=== PATIENT | female | born 1975 | race Hispanic/Latino ===

== ENCOUNTER 2018-08-24 10:55 | Outpatient (CLI) | payer BC ==
[2018-08-24 11:57] LABS: Hemoglobin 13.4 g/dL (12.0-16.0); Mean Corpuscular Hemoglobin 30.6 pg (27.0-31.0); Mean Corpuscular Volume 90.1 fL (78.0-98.0); Mean Platelet Volume 7.1 fL (7.4-10.4); Platelet Count 304 thou/uL (130-400); Red Blood Cell (RBC) Count 4.38 mill/uL (4.20-5.40); White Blood Cell (WBC) Count 7.2 thou/uL (4.8-10.8)
[2018-08-24 12:05] LABS: BHCG - Serum Negative (NEGATIVE); Pregs Control Background? CLEAR/WHITE (CLR/WHITE); Pregs Control Bar Appear? YES (CONTROL BAR)
[2018-08-24 12:14] LABS: Anion Gap 14 mmol/L (10-20); BUN (Urea Nitrogen) 8 mg/dL (7.0-18.7); Calc. Creatinine Clearance 0 mL/min (70-130); Calcium 9.7 mg/dL (7.8-10.44); Carbon Dioxide 23 mmol/L (22-29); Chloride 102 mmol/L (98-107); Estimated GFR-MDRD Greater than 90; Glucose 90 mg/dL (70-105); Potassium 3.4 mmol/L (3.5-5.1); Sodium 136 mmol/L (136-145)
[2018-08-24 17:41] LABS: ALT (SGPT) 15 U/L (8-55); AST (SGOT) 19 U/L (5-34); Albumin 4.3 g/dL (3.5-5.0); Alkaline Phosphatase 51 U/L (40-150); Bilirubin, Direct 0.3 mg/dL (0.1-0.3); Bilirubin, Total 0.7 mg/dL (0.2-1.2); Protein, Total 7.4 g/dL (6.0-8.3)
--- NOTE | 2018-08-24 18:02 | EKG ---
Test Reason : Blood Pressure : / mmHG Vent. Rate : 074 BPM Atrial Rate : 074 BPM P-R Int : 140 ms QRS Dur : 080 ms QT Int : 442 ms P-R-T Axes : 050 -21 053 degrees QTc Int : 490 ms Normal sinus rhythm with sinus arrhythmia Nonspecific T wave abnormality Prolonged QT Persistent S wave in V5 and V6. Abnormal ECG When compared with ECG of 27-JUN-2016 04:12, No significant change was found Confirmed by KRISTEN KARIMI ([id number]) on 08/24/2018 6:02:19 PM Referred By: DON Confirmed By:KRISTEN KARIMI
== END 2018-08-24 10:56 | disposition home or self-care (01) ==
LOC: LABBT 10:55
PROVIDERS: ATTEND Obstetrics & Gynecology
DX: Z01.818 Encounter for other preprocedural examination (principal)
CPT/HCPCS: 80048; 80076; 84703; 85027; 93005; 93010

== ENCOUNTER 2018-09-05 05:59 | Observation (INO) | payer BC ==
[2018-08-24 11:20] VITALS: BMI 39.4
--- NOTE | 2018-09-04 15:25 | HP ---
DATE OF PLANNED PROCEDURE: 09/05/2018 PREOPERATIVE DIAGNOSES: 1. Irregular bleeding and fibroid uterus. 2. Left lower quadrant pain. PROCEDURE TO BE PERFORMED: Robotic assisted total laparoscopic hysterectomy with bilateral salpingectomy and left oophorectomy. HISTORY OF PRESENT ILLNESS: Ms. Lulu Turner is a 42-year-old with long history of irregular bleeding and bleeding between her periods since 2017. She had previously been evaluated with an endometrial biopsy and on ultrasound, was noted to have multiple small fibroids. The patient tried medical therapy with oral contraceptive pills and had no improvement. The patient delayed definitive management for herself because she was caring for her mother and has started a new job. As she has noted no improvement in her symptoms over the last year, she desires to schedule robotic total laparoscopic hysterectomy. At the time of her preop visit, she emphasized persistent left lower quadrant pain that is worse mid cycle and worse with her menstrual period and request removal of her left ovary at the time of robotic TLH. PAST MEDICAL HISTORY: Arthritis, hypothyroidism, hypertension, psoriasis MEDICATIONS: 1. Triamterene-hydrochlorothiazide 2. Levoxyl 3. Hydroxychloroquine PAST SURGICAL HISTORY: Cholecystectomy and lithotripsy. SOCIAL HISTORY: . Does not use alcohol, tobacco, or drugs. FAMILY HISTORY: Significant for hypertension in her mother and her father. OBSTETRICAL HISTORY: Pertinent for 3 vaginal deliveries. GYNECOLOGIC HISTORY: Last menstrual period 07/30/2018. Most recent pap smear 09/15/2016 within normal limit with negative HPV. No history of abnormal Pap smear. No history of STD, PID. REVIEW OF SYSTEMS: Negative, except as stated in HPI. PHYSICAL EXAMINATION: VITAL SIGNS: Weight 159 pounds, height 4 feet 11 inches, BMI 32.1, blood pressure 124/72, pulse 79, respirations 18, O2 sat 99%. GENERAL: No acute distress. Alert and oriented. CARDIOVASCULAR: Regular rate and rhythm. LUNGS: Clear to auscultation bilaterally. ABDOMEN: Obese, soft, nontender. No palpable masses. No hepatosplenomegaly. : Normal external female genitalia. Normal vulva and labia. Normal vaginal mucosa. No abnormal discharge. No cervical lesions. Uterus, nontender, normal size. No masses. Adnexa, no adnexal masses palpated on exam. Bladder and urethra, palpated and are normal. EXTREMITIES: No swelling, clubbing, or cyanosis. MUSCULOSKELETAL: No gross deformity. NEUROLOGIC: Grossly intact. MENTAL STATUS: Alert and oriented. Appropriate affect. Normal speech. DIAGNOSTIC STUDIES: Ultrasound in September 2016 with the uterus, 9.6 x 5 x 5.7 cm with a small 2 x 2 cm posterior fibroid, endometrial thickness 4.7 mm. Normal appearing ovaries bilaterally. No adnexal masses or free fluid. Endometrial biopsy, September 2016, benign proliferative endometrium. ASSESSMENT AND PLAN: Ms. Lulu Turner is 42-year-old G4, P3-0-1-3, who requests definitive management of her left lower quadrant pain and irregular menstrual periods refractory to medical management. She understands the risks, benefits, and alternative to robotic-assisted laparoscopic hysterectomy with bilateral salpingectomy and left oophorectomy. She understands the risk, which include, but not limited to bleeding infection or damage to intra-abdominal organs or pelvic organs, inability to fully diagnose and treat all conditions at the time of surgery and possible need for future medical and/or surgical management. She also understands that the possibility of removing her left ovary does not resolve her left lower quadrant pain. Her questions have been answered to her satisfaction , and she desires to proceed with the procedures listed above. Job ID: [id number] [facility]
[2018-09-05] MEDS ORDERED: CEFAZOLIN 2 GM/50 ML BAG ONE (06:07)
[2018-09-05] MEDS ORDERED: Gabapentin 300 MG CAP ONE (06:07)
[2018-09-05] MEDS ORDERED: Famotidine/PF 20 mg/2ml Vial ONE (06:07)
[2018-09-05] MEDS ORDERED: CeleCOXIB 100 MG CAP ONE (06:08)
[2018-09-05] MEDS ORDERED: Bupivacaine HCl 0.5%/Epinephrine 1:200,000/PF 30 ml Vial ONE (06:35)
[2018-09-05] MEDS ORDERED: Fentanyl 100 MCG/2 ML VIAL ONE ×2 (06:43→09:53)
[2018-09-05] MEDS ORDERED: Midazolam HCl 2 mg/2 ml Vial ONE (06:43)
[2018-09-05] MEDS ORDERED: ADMIXTURE FEE CHEMO NERVE BLCK SCH ×3 (08:15→10:45)
[2018-09-05] MEDS ORDERED: ROPIVACAINE HCL NERVE BLCK SCH ×3 (08:15→10:45)
[2018-09-05] MEDS ORDERED: Morphine 4 MG/ML VIAL SLOW IVP PRN (11:10)
[2018-09-05] MEDS ORDERED: Ondansetron PF 4 MG/2 ML Vial IVP PRN (11:10)
[2018-09-05] MEDS ORDERED: HYDROcodone/Acetaminophen 5/325 mg Tablet PO PRN ×2 (11:10)
[2018-09-05] MEDS ORDERED: Bisacodyl 10 MG SUPP PR PRN (11:10)
[2018-09-05] MEDS ORDERED: Sodium Chloride 0.9% 1,000 ML IV SCH (11:10)
[2018-09-05] MEDS ORDERED: Promethazine HCl 25 MG/ML VIAL IM PRN (11:10)
[2018-09-05] MEDS ORDERED: Simethicone Chewable 80 MG TAB PO PRN (11:10)
[2018-09-05] MEDS ORDERED: Zolpidem Tartrate 5 MG TAB PO PRN (11:10)
[2018-09-05] MEDS ORDERED: diphenhydrAMINE 25 MG CAP PO PRN (11:10)
[2018-09-05 11:14] VITALS: BP 131/76; TEMP 97.7
[2018-09-05] MEDS ORDERED: Ketorolac Tromethamine 30 MG/ML VIAL IVP SCH ×2 (12:00→15:00)
[2018-09-05] MEDS ORDERED: Dexamethasone 20 MG/5 ML VIAL ONE (13:00)
[2018-09-05] MEDS ORDERED: PROPOFOL 200 MG/20 ML VIAL ONE (13:00)
[2018-09-05] MEDS ORDERED: Ondansetron PF 4 MG/2 ML Vial ONE (13:00)
[2018-09-05] MEDS ORDERED: Glycopyrrolate 0.2 MG/ML 5 ML SYRINGE ONE (13:00)
[2018-09-05] MEDS ORDERED: Lidocaine 1% PF 5 ML VIAL ONE (13:00)
[2018-09-05] MEDS ORDERED: Ketorolac Tromethamine 30 MG/ML VIAL ONE (13:00)
--- NOTE | 2018-09-05 16:32 | OP ---
DATE OF PROCEDURE: 09/05/2018 PREOPERATIVE DIAGNOSES: 1. Menorrhagia. 2. Fibroids. 3. Left lower quadrant pain. POSTOPERATIVE DIAGNOSES: 1. Menorrhagia. 2. Fibroids. 3. Left lower quadrant pain. 4. Endometriosis. PROCEDURES PERFORMED: 1. Robotic-assisted total laparoscopic hysterectomy with bilateral salpingectomy and left oophorectomy. 2. Fulguration of endometriosis. 3. Placement of ON-Q pump. ACCOUNTS RECEIVABLE ASSISTANT: Sandra Navarrete MD COMPLICATIONS: None. ESTIMATED BLOOD LOSS: Less than 50 mL. ANESTHESIA: GETA. URINE OUTPUT: Before the case, 200 mL. During the case, approximately 15 mL. OPERATIVE FINDINGS: 1. Enlarged uterus. 2. Endometriosis noted along the left pelvic side wall. 3. Hemostatic vaginal cuff. 4. No intra-abdominal adhesive disease. DESCRIPTION OF PROCEDURE: The patient was taken back to the OR with IV fluids running. When she was in the OR, she was placed in the dorsal supine position and general anesthesia was obtained. After the patient was asleep, she was placed in low dorsal lithotomy position and the abdomen and vagina were prepped and draped in the normal fashion per gynecologic laparoscopy. A Nickerson catheter was placed into the bladder and drained 200 mL of urine. Atif syringe was placed on the tip of the catheter. An operative speculum was placed into the vagina and the cervix was easily visualized and grasped with a single-tooth tenaculum. The uterus sounded to 10 cm. ALEC Jakob manipulator with a 10 cm tip and a 4 cm cervical ring was assembled and placed into the uterus and vagina in normal fashion with the intrauterine and vaginal occluder balloons inflated. Surgeon's gloves were changed. Attention was then turned to laparoscopic portion of the case. Beginning approximately 2 cm above the umbilicus, local anesthesia was placed onto the skin. A 12 mm skin incision was made with a scalpel and a Veress needle was placed through this incision and the abdomen was insufflated without difficulty. After the abdomen was insufflated, a 12-mm trocar was placed through this incision followed by the laparoscope. The patient was then placed in Trendelenburg position with the above findings noted. The skin at the right lower quadrant was injected with local anesthesia. An 8 mm skin incision was made and an 8 mm trocar was placed under direct visualization without difficulty. In similar fashion, a right upper quadrant 11 mm port and a left lower quadrant 8 mm port were also placed. After all 4 ports were placed, the robotic arms were docked to the patient's bedside. Monopolar scissors and bipolar cautery were directed under direct visualization into the operating field. Beginning on the patient's left side, the left ovary and fallopian tube were identified. The IP ligament as well as the ureter that was noted to be well away from the IP ligament were identified. The IP ligament was cauterized and transected using bipolar cautery and monopolar scissors. After the IP ligament was transected, the round ligament was cauterized and transected. It was divided into anterior and posterior leaves and the left uterine artery was skeletonized. The anterior leaf of the broad ligament was taken down anteriorly over the cervix to create a bladder flap and the bladder was dissected away from the future colpotomy site. After the uterine artery was adequately skeletonized, it was cauterized and transected with good hemostasis noted. After the dissection was complete on the patient's left side, attention was turned to the right side. The right fallopian tube was grasped, elevated, and transected using bipolar and monopolar cautery. The fallopian tube was removed from the operating field. The right utero-ovarian artery was cauterized and transected allowing the right ovary to fall away to the pelvic side wall. The round ligament on the patient's right side was then cauterized and divided into the anterior and posterior leaves. The round ligament was dissected down towards the level of the uterine, which was then skeletonized. The bladder flap was completed from the patient's right side and the bladder was completed dissected away and noted to be well away from the planned colpotomy site. The uterine artery on the patient's right side was then cauterized and transected. After the blood supply was taken down bilaterally, the colpotomy began posteriorly and was completed circumferentially using monopolar scissors. After the colpotomy was completed, the uterine specimen, left tube and ovary were retracted into the vaginal and remained there for pneumoperitoneum. The vaginal cuff and surgical pedicles were irrigated and suctioned dry. Any small areas of the bleeding along the vaginal cuff were controlled with bipolar cautery. The vaginal cuff was then closed with Stratafix suture in a running fashion and in 2 layers from corner to corner. After the vaginal cuff was closed, the surgical pedicles and vaginal cuff were again copiously irrigated and suctioned dry. The pressure was dropped down to 6 to 8 mmHg and no areas of bleeding were noted. Two small endometriotic lesions were noted on the left pelvic sidewall. These were fulgurated with the monopolar cautery. An ON- Q catheter tip was then placed under direct visualization through the anterior abdominal wall. Catheter was threaded down into the pelvis and the catheter sheath was removed. The catheter tip was primed and noted to be infusing well. All instruments were removed from the abdomen. The counts were correct. The ports were removed and the gas was released from the abdomen. The patient was then placed in a neutral position. The fascia was closed at the supraumbilical port site with Vicryl suture. All 4 skin incisions were closed with Monocryl suture and dressed with Dermabond dressing. The vagina was inspected and noted to be hemostatic at the end of the case. The patient was cleaned, dried, extubated, and taken to the recovery room in good condition. Job ID: [id number] [facility]ITALFrederic
[2018-09-05] MEDS ORDERED: Hydroxychloroquine Sulfate 200 MG TAB PO SCH (21:00)
[2018-09-06] MEDS ORDERED: Levothyroxine Sodium 125 MCG TAB PO SCH (06:00)
[2018-09-06] MEDS ORDERED: Prenatal Vitamin 1 TAB PO SCH (09:00)
[2018-09-06] MEDS ORDERED: Ascorbic Acid 500 mg Chewable Tablet PO SCH (09:00)
[2018-09-06] MEDS ORDERED: Triamterene/Hydrochlorothiazid 75 mg/50 mg Tablet PO SCH (09:00)
[2018-09-10] MEDS ORDERED: Ibuprofen 800 MG TAB PO SCH (14:00)
== END 2018-09-05 17:40 | disposition home or self-care (01) ==
LOC: SDC 05:59 → 3SE 09:44
PROVIDERS: ADMIT Obstetrics & Gynecology; ATTEND Obstetrics & Gynecology
PROC: 0UT94ZZ Resection of Uterus, Percutaneous Endoscopic Approach (ICD-10-PCS; principal; 2018-09-05)
PROC: 0UT14ZZ Resection of Left Ovary, Percutaneous Endoscopic Approach (ICD-10-PCS; 2018-09-05)
PROC: 0UT74ZZ Resection of Bilateral Fallopian Tubes, Percutaneous Endoscopic Approach (ICD-10-PCS; 2018-09-05)
PROC: 0JH83VZ Insertion of Infusion Pump into Abdomen Subcutaneous Tissue and Fascia, Percutaneous Approach (ICD-10-PCS; 2018-09-05)
DX: N88.8 Other specified noninflammatory disorders of cervix uteri (principal); N72 Inflammatory disease of cervix uteri; N87.9 Dysplasia of cervix uteri, unspecified; N80.0 Endometriosis of uterus; D25.9 Leiomyoma of uterus, unspecified; N83.02 Follicular cyst of left ovary; I10 Essential (primary) hypertension; E03.9 Hypothyroidism, unspecified; M19.90 Unspecified osteoarthritis, unspecified site; L40.9 Psoriasis, unspecified; Z90.49 Acquired absence of other specified parts of digestive tract; Z88.0 Allergy status to penicillin; Z79.899 Other long term (current) drug therapy; Z98.890 Other specified postprocedural states
CPT/HCPCS: 36415; 86850; 86870; 86900; 86901; 86905; 86922; 88307; G0378; J0670; J1100; J1885; J2001; J2250; J2405; J2704; J2795; J3010; S0028

== ENCOUNTER 2019-12-04 10:00 | Outpatient (CLI) | payer BC ==
--- NOTE | 2019-12-04 11:00 | MMO ---
Left Breast MAMMO Unilat Diag DDI LT+JAMES. CLINICAL HISTORY: Patient is 44 years old and is seen for diagnostic exam. The patient has a history of left Excisional Biopsy in 2012 - benign - (FIBROIDS). VIEWS: The views performed were: left craniocaudal spot compression with tomosynthesis; left mediolateral oblique spot compression with tomosynthesis; and left mediolateral with tomosynthesis. FILMS COMPARED: The present examination has been compared to prior imaging studies performed at [facility] on 10/19/2019, and at [facility] on 12/04/2019. This study has been interpreted with the assistance of computer-aided detection. MAMMOGRAM FINDINGS: The breast is heterogeneously dense, which could obscure a lesion on mammography. Heterogenous parenchyma outer posterior left breast. No mass or distortion seen on tomosynthesis. No ultrasound abnormality. Recommend routine follow up. There are no suspicious masses, suspicious calcifications, or new areas of architectural distortion. IMPRESSION: THERE IS NO MAMMOGRAPHIC EVIDENCE OF MALIGNANCY. A ROUTINE FOLLOW-UP MAMMOGRAM IN 1 YEAR IS RECOMMENDED. THE RESULTS OF THIS EXAM WERE SENT TO THE PATIENT. ACR BI-RADS Category 2 - Benign finding MAMMOGRAPHY NOTE: 1. A negative mammogram report should not delay a biopsy if a dominant of clinically suspicious mass is present. 2. Approximately 10% to 15% of breast cancers are not detected by mammography. 3. Adenosis and dense breasts may obscure an underlying neoplasm. Reported by: STACY CALI MD Electonically Signed: [id number]
--- NOTE | 2019-12-04 11:55 | ULT ---
ULTRASOUND LEFT BREAST: Date: 12/04/2019 INDICATION: Ultrasound of the posterior outer left breast was performed to assess an area of heterogeneity noted on mammography. FINDINGS: No sonographic abnormality identified. Recommend patient be returned to routine mammogram follow-up. IMPRESSION: Ultrasound findings are BI-RADS Category 1 - Negative.
== END 2019-12-04 10:01 | disposition home or self-care (01) ==
LOC: BICMAMMO 10:00
PROVIDERS: ATTEND Obstetrics & Gynecology
DX: N63.20 Unspecified lump in the left breast, unspecified quadrant (principal)
CPT/HCPCS: G0279